=== PATIENT | female | born 1990 | race Caucasian/White ===

== ENCOUNTER 2017-11-06 08:17 | Emergency (ER) | payer SELFPAY ==
[2017-11-06] MEDS ORDERED: ONDANSETRON 4 MG (ODT) TAB ONE (08:57)
[2017-11-06] MEDS ORDERED: ONDANSETRON 4 MG/2 ML VIAL ONE (09:01)
[2017-11-06] MEDS ORDERED: cloNIDine HCl 0.1 MG TAB ONE (09:01)
[2017-11-06] MEDS ORDERED: NA CHLORIDE 0.9% 1,000 ML ONE (09:02)
--- NOTE | 2017-11-06 09:02 | ER ---
Nurse's Notes [facility] Name: Karen Blanco Age: 27 yrs Sex: Female : 1990 Arrival Date: 11/06/2017 Time: 08:22 Bed 20 Private MD: Diagnosis: Opioid Withdrawal. Presentation: 11/06 08:50 Presenting complaint: Patient states: was at [facility] and was sent over here iw for vomiting. Transition of care: patient was received from another setting of care (rehabilitation facility). Onset of symptoms was November 06, 2017. Initial Sepsis Screen: Does the patient meet any 2 criteria? No. Patient's initial sepsis screen is negative. Does the patient have a suspected source of infection? No. Patient's initial sepsis screen is negative. Care prior to arrival: None. 08:50 Method Of Arrival: Ambulatory iw 08:50 Acuity: MANJEET 4 iw Triage Assessment: 08:59 General: Appears in no apparent distress. Behavior is calm, cooperative. Pain: em Complains of pain in abdomen. 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 - Social history:: Smoking status: Patient uses tobacco products, smokes one-half pack cigarettes per day. Screenin:22 Abuse screen: Denies threats or abuse. Nutritional screening: No deficits noted. em Tuberculosis screening: No symptoms or risk factors identified. Fall Risk None identified. Assessment: 09:00 General: Appears in no apparent distress. uncomfortable, Behavior is calm, cooperative. em Pain: Complains of pain in abdomen Pain currently is 7 out of 10 on a pain scale. Quality of pain is described as crampy, Pain began 1 day ago. Neuro: Level of Consciousness is awake, alert, obeys commands, Oriented to person, place, time, situation, Appropriate for age. Cardiovascular: Capillary refill < 3 seconds. Respiratory: Reports cough that is productive, Airway is patent Respiratory effort is even, unlabored, Respiratory pattern is regular, symmetrical. GI: Abdomen is flat, Pt is actively vomiting bile, Bowel sounds present X 4 quads. Abd is soft and non tender X 4 quads. Reports nausea, vomiting. : Urine is clear. EENT: No signs and/or symptoms were reported regarding the EENT system. Derm: Skin is intact, Skin is clammy, Skin is normal, Skin temperature is cool. Musculoskeletal: Range of motion: intact in all extremities. 09:15 Reassessment: Patient appears in no apparent distress at this time. I agree with above iw assessment by Warren Westfall LVN. 09:37 Reassessment: Patient appears in no apparent distress at this time. Patient is alert, em oriented x 3, equal unlabored respirations, skin warm/dry/pink. awaiting 1 L NS to complete Patient states symptoms have improved. 10:45 Reassessment: Patient appears in no apparent distress at this time. Patient and/or em family updated on plan of care and expected duration. Pain level reassessed. Patient is alert, oriented x 3, equal unlabored respirations, skin warm/dry/pink. Patient states feeling better. Patient states symptoms have improved. Vital Signs: 08:56 BP 139 / 89; Pulse 114; Resp 18; Temp 97.6(TE); Pulse Ox 100% on R/A; Weight 54.43 kg; em Height 5 ft. 6 in. (167.64 cm); Pain 7/10; 09:50 BP 112 / 78; Pulse 61; Resp 16; Pulse Ox 99% on R/A; em 10:45 BP 119 / 83; Pulse 64; Resp 18; Pulse Ox 99% on R/A; em 08:56 Body Mass Index 19.37 (54.43 kg, 167.64 cm) em ED Course: 08:22 Patient arrived in ED. mr 08:35 Herberth Nicholas MD is Attending Physician. ps1 08:40 Warren Westfall LVN is Primary Nurse. em 08:51 Triage completed. iw 09:17 No provider procedures requiring assistance completed. Inserted saline lock: 24 gauge em in right hand, using aseptic technique. 09:22 Arm band placed on. em 09:23 Patient has correct armband on for positive identification. Bed in low position. Call em light in reach. Side rails up X2. 10:51 IV discontinued, intact, bleeding controlled, No redness/swelling at site. Pressure em dressing applied. Administered Medications: 09:05 Drug: Zofran 4 mg Route: PO; em 09:19 Drug: NS 0.9% 1000 ml Route: IV; Rate: 1 bolus; Site: right hand; em 09:20 Drug: Zofran 4 mg Route: IVP; Site: right hand; iw 09:31 Drug: cloNIDine 0.1 mg Route: PO; em Outcome: 09:01 Discharge ordered by . ps1 10:51 Discharged to home ambulatory. em 10:51 Condition: good 10:51 Discharge instructions given to patient, Instructed on discharge instructions, follow up and referral plans. medication usage, Demonstrated understanding of instructions, follow-up care, medications, Prescriptions given X 2. 10:56 Patient left the ED. em Signatures: Padma Law mr Khoi, Warren, HEALTH AND WELLNESS COACH HEALTH AND WELLNESS COACH em Sarah Mills, SALENA RN Herberth Arguello MD MD ps1
--- NOTE | 2017-11-06 09:02 | EDPHYS ---
Physician Documentation [facility] Name: Karen Blanco Age: 27 yrs Sex: Female : 1990 Arrival Date: 11/06/2017 Time: 08:22 Bed 20 Private MD: ED Physician Herberth Nicholas HPI: 11/06 08:51 This 27 yrs old Female presents to ER via Ambulatory with complaints of ps1 Withdrawals. 08:51 patient was sent from [facility] for vomiting. Patient stopped using heroin yesterday ps1 and having symptoms of opioid withdrawal. Has been using since last December. Started because boyfriend was using. . 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 - Social history:: Smoking status: Patient uses tobacco products, smokes one-half pack cigarettes per day. ROS: 08:51 Constitutional: Negative for fever, chills, and weight loss, Eyes: Negative for injury, ps1 pain, redness, and discharge, Neck: Negative for injury, pain, and swelling, Cardiovascular: Negative for chest pain, palpitations, and edema, Respiratory: Negative for shortness of breath, cough, wheezing, and pleuritic chest pain. 08:51 Skin: Negative for injury, rash, and discoloration, Neuro: Negative for headache, weakness, numbness, tingling, and seizure. 08:51 Abdomen/GI: Positive for nausea, vomiting. Exam: 08:51 Constitutional: This is a well developed, well nourished patient who is awake, alert, ps1 and in no acute distress. Head/Face: Normocephalic, atraumatic. ENT: Nares patent. No nasal discharge, no septal abnormalities noted. Tympanic membranes are normal and external auditory canals are clear. Oropharynx with no redness, swelling, or masses, exudates, or evidence of obstruction, uvula midline. Mucous membranes moist. Neck: Trachea midline, no thyromegaly or masses palpated, and no cervical lymphadenopathy. Supple, full range of motion without nuchal rigidity, or vertebral point tenderness. No Meningismus. Chest/axilla: Normal chest wall appearance and motion. Nontender with no deformity. No lesions are appreciated. Cardiovascular: Regular rate and rhythm. No gallops, murmurs, or rubs. Normal PMI, no JVD. No pulse deficits. Respiratory: Lungs have equal breath sounds bilaterally, clear to auscultation and percussion. No rales, rhonchi or wheezes noted. No increased work of breathing, no retractions or nasal flaring. Abdomen/GI: Soft, non-tender, with normal bowel sounds. No distension or tympany. No guarding or rebound. No evidence of tenderness throughout. Skin: Warm, dry with normal turgor. Normal color with no rashes, no lesions, and no evidence of cellulitis. MS/ Extremity: Pulses equal, no cyanosis. Neurovascular intact. Full, normal range of motion. Neuro: Awake and alert, GCS 15, oriented to person, place, time, and situation. Cranial nerves II-XII grossly intact. Sensory grossly intact. Vital Signs: 08:56 BP 139 / 89; Pulse 114; Resp 18; Temp 97.6(TE); Pulse Ox 100% on R/A; Weight 54.43 kg; em Height 5 ft. 6 in. (167.64 cm); Pain 7/10; 09:50 BP 112 / 78; Pulse 61; Resp 16; Pulse Ox 99% on R/A; em 10:45 BP 119 / 83; Pulse 64; Resp 18; Pulse Ox 99% on R/A; em 08:56 Body Mass Index 19.37 (54.43 kg, 167.64 cm) em MDM: 08:36 Patient medically screened. ps1 08:51 Data reviewed: vital signs, nurses notes. ps1 11/06 09:18 Order name: Urine Dipstick--Ancillary (enter results); Complete Time: 10:04 mw2 11/06 09:18 Order name: Urine --Ancillary (enter results); Complete Time: 10:04 mw2 Administered Medications: 09:05 Drug: Zofran 4 mg Route: PO; em 09:19 Drug: NS 0.9% 1000 ml Route: IV; Rate: 1 bolus; Site: right hand; em 09:20 Drug: Zofran 4 mg Route: IVP; Site: right hand; iw 09:31 Drug: cloNIDine 0.1 mg Route: PO; em Disposition: 11/06/17 09:01 Discharged to Home. Impression: Opioid Withdrawal. . - Condition is Stable. - Discharge Instructions: Opioid Withdrawal. - Prescriptions for Zofran 4 mg Oral Tablet - take 1 tablet by ORAL route every 8 hours As needed; 40 tablet. Clonidine 0.1 mg Oral Tablet - take 1 tablet by ORAL route every 12 hours; 60 tablet. - Medication Reconciliation Form, Thank You Letter, Antibiotic Education, Prescription Opioid Use form. - Follow up: Private Physician; When: As needed; Reason: Recheck today's complaints, Continuance of care, Re-evaluation by your physician. Follow up: Emergency Department; When: As needed; Reason: Worsening of condition. - Problem is new. - Symptoms have worsened. Signatures: Dispatcher [employer] Warren Evans, INDEPENDENT INSURANCE ADJUSTER INDEPENDENT INSURANCE ADJUSTER Sarah Bonilla, SAL[place] RN Herberth Arguello MD MD ps1
[2017-11-06 10:03] LABS: Urine Blood 1+ (NEG); Urine Glucose 3+ (NEG); Urine Protein NEGATIVE (NEG); Urine Specific Gravity 1.025 (1.005-1.030); Urine pH 5.5 (5.0-7.0)
== END 2017-11-06 10:56 | disposition home or self-care (01) ==
LOC: ER 08:17
DX: F11.23 Opioid dependence with withdrawal (principal); F17.210 Nicotine dependence, cigarettes, uncomplicated
CPT/HCPCS: 81003; 81025; 96374; 99283; J2405; J7030